=== PATIENT | male | born 1995 | race Hispanic/Latino ===

== ENCOUNTER 2019-10-13 09:39 | Emergency (ER) | payer SELFPAY ==
[2019-10-13] MEDS ORDERED: ACETAMINOPHEN EXTRA STRENGTH 500 MG TABLET ONE (10:14)
== END 2019-10-13 11:00 | disposition home or self-care (01) ==
LOC: EDH 09:39
DX: J06.9 Acute upper respiratory infection, unspecified (principal); J45.909 Unspecified asthma, uncomplicated; Z98.890 Other specified postprocedural states; Z72.0 Tobacco use
CPT/HCPCS: 87880

== ENCOUNTER 2021-07-16 11:52 | Emergency (ER) | payer OTHER, SELFPAY ==
[~2021-07-16] VITALS: Ht 172.7 cm; Wt 88.5 kg
[2021-07-16 11:53] VITALS: BP 140/86
[2021-07-16 12:48] LABS: CREATINE KINASE, TOTAL 105 U/L (21-232); MYOGLOBIN 24 ng/mL (10-92)
== END 2021-07-16 13:43 | disposition home or self-care (01) ==
LOC: EDH 11:52
DX: R07.89 Other chest pain (principal); F19.10 Other psychoactive substance abuse, uncomplicated; F41.9 Anxiety disorder, unspecified; Z20.822 Contact with and (suspected) exposure to COVID-19
CPT/HCPCS: 36415; 71045; 82550; 83874; 84484; 87635; 87804 ×2; 93005; 99285; C9803

== ENCOUNTER 2022-10-31 12:45 | Emergency (ER) | payer OTHER ==
[~2022-10-31] VITALS: Ht 172.7 cm; Wt 83.9 kg
[2022-10-31 13:20] VITALS: BP 138/93
[2022-10-31 13:34] LABS: BASOPHILS % (AUTO) 0.4 % (0.0-5.0); EOSINOPHILS % (AUTO) 0.8 % (0.0-8.0); HEMATOCRIT 48.4 % (42-54); LYMPHOCYTES % (AUTO) 18.5 % (21.0-51.0); MEAN CORPUSCULAR HEMOGLOBIN 30.3 pg (27.0-33.0); MEAN CORPUSCULAR HGB CONC 33.9 g/dL (32.0-36.0); MEAN CORPUSCULAR VOLUME 89.3 fL (79-99); MONOCYTES % (AUTO) 7.7 % (3.0-13.0); NEUTROPHILS % (AUTO) 72.2 % (40.0-77.0); PLATELET COUNT (AUTO) 344 K/uL (130-400); RED BLOOD CELL COUNT(AUTO) 5.42 MIL/uL (4.50-6.20); RED CELL DISTRIBUTION WIDTH 12.4 % (11.0-15.5); WHITE BLOOD COUNT (AUTO) 8.3 K/uL (4.8-10.8)
[2022-10-31 13:45] LABS: POTASSIUM 4.4 mmol/L (3.5-5.1)
[2022-10-31 13:49] LABS: ALBUMIN 4.2 g/dL (3.5-5.0); TOTAL PROTEIN, SERUM 8.4 g/dL (6.0-8.3)
[2022-10-31] MEDS ORDERED: GUAIFENESIN-DM 200/20 MG 10 ML PO ONE (14:00)
[2022-10-31] MEDS ORDERED: IBUPROFEN 600 MG TABLET PO ONE (14:00)
[2022-10-31 14:17] LABS: APPEARANCE,URINE CLEAR (CLEAR); BILIRUBIN,URINE NEGATIVE (NEGATIVE); COLOR,URINE LIGHT-YELLOW (YELLOW); GLUCOSE, URINE (UA) NEGATIVE (NEGATIVE); KETONES,URINE NEGATIVE (NEGATIVE); LEUKOCYTE ESTERASE ,URINE NEGATIVE Leu/uL (NEGATIVE); NITRATE,URINE NEGATIVE (NEGATIVE); OCCULT BLOOD,URINE NEGATIVE (NEGATIVE); PH,URINE 6.5 (5.0-8.0); PROTEIN,URINE NEGATIVE (NEGATIVE); UROBILINOGEN,URINE 0.2 mg/dL (0.2-1.0)
[2022-10-31] MEDS ORDERED: GUAIF10 PO (14:47)
[2022-10-31] MEDS ORDERED: IBUP-2070 PO (14:47)
== END 2022-10-31 14:58 | disposition home or self-care (01) ==
LOC: EDH 12:45
DX: U07.1 COVID-19 (principal); J45.901 Unspecified asthma with (acute) exacerbation
CPT/HCPCS: 99284; 87635; 84484; 80053; 85025; 87804 ×2; 81003; 36415; 93005; C9803